=== PATIENT | female | born 1985 | race Caucasian/White ===

== ENCOUNTER 2020-07-12 09:59 | Emergency (ER) | payer MEDICAID ==
[~2020-07-12] VITALS: Ht 154.9 cm; Wt 100.0 kg
[~2020-07-12 09:59] MED LIST: AMOXICILLIN 50500 MG PO; CEPHALEXIN500 M1 PO; NORCO 325 MG-51 TAB PO; ROXICODONE 55 MG/TAB PO; ULTRAM 50MG TAB50 MG PO
[2020-07-12 10:28] VITALS: BP 125/87; TEMP 97.7
[2020-07-12 11:57] VITALS: PULSE 87
== END 2020-07-12 11:57 | disposition home or self-care (01) ==
LOC: COL.ER 09:59
DX: J06.9 Acute upper respiratory infection, unspecified (principal); F17.210 Nicotine dependence, cigarettes, uncomplicated; Z20.822 Contact with and (suspected) exposure to COVID-19; Z88.0 Allergy status to penicillin; Z88.2 Allergy status to sulfonamides; Z88.6 Allergy status to analgesic agent; Z88.1 Allergy status to other antibiotic agents

== ENCOUNTER 2020-11-05 12:28 | Emergency (ER) | payer MEDICAID ==
[~2020-11-05] VITALS: Ht 154.9 cm; Wt 109.1 kg
[2020-11-05 13:01] VITALS: TEMP 101.9
[2020-11-05] MEDS ORDERED: ZITHROMAX Z PA250 MG PO (14:39)
[2020-11-05] MEDS ORDERED: PREDNISONE20 MG PO (14:39)
[2020-11-05] MEDS ORDERED: ZOFRAN ODT4 MG PO (14:39)
[2020-11-05 14:55] VITALS: BP 130/61; PULSE 80
== END 2020-11-05 15:01 | disposition home or self-care (01) ==
LOC: COL.ER 12:28
DX: U07.1 COVID-19 (principal); F17.200 Nicotine dependence, unspecified, uncomplicated

== ENCOUNTER 2020-12-10 17:31 | Emergency (ER) | payer MEDICAID ==
[~2020-12-10] VITALS: Ht 154.9 cm; Wt 113.6 kg
[~2020-12-10 17:31] MED LIST changes: +PREDNISONE20 MG PO; +ZITHROMAX Z PA250 MG PO; +ZOFRAN ODT4 MG PO
[2020-12-10 17:36] VITALS: TEMP 98.5
[2020-12-10 18:29] LABS: COLLECTION METHOD CLEAN CATCH
[2020-12-10 18:31] LABS: BASO % 0.3 % (0.0-2.0); EOS # 0.2 (0.0-0.7); EOS % 2.5 % (0-4.0); GRAN # 4.7 (1.4-6.5); GRAN % 72.7 % (42.2-75.2); HEMATOCRIT 40.8 % (37.0-47.0); HEMOGLOBIN 13.3 g/dl (12.5-16.0); LYMPH # 1.2 (1.2-3.4); LYMPH % 18.2 % (20.0-51.0); MEAN CELL VOLUME 90 fl (80.0-100.0); MEAN CORPUSCULAR HEMOGLOBIN 29 pg (27.0-31.0); MEAN CORPUSCULAR HGB CONC 33 g/dl (33.0-37.0); MEAN PLATELET VOLUME 10.7 fl (7.4-10.4); MONO # 0.4 (0.1-0.6); MONO % 5.8 % (1.7-9.3); PLATELET COUNT 249 K/mm3 (130-400); RED BLOOD COUNT 4.56 M/mm3 (4.10-5.30); REDCELL DISTRIBUTION WIDTH-CV 14.7 % (11.5-14.5)
[2020-12-10 18:46] LABS: ALANINE AMINOTRANSFERASE 17 U/L (0-55); ALBUMIN 4.2 gm/dL (3.5-5.0); ALKALINE PHOSPHATASE 68 U/L (0-750); ANION GAP 12 mmol/L (7-16); AST,SGOT 23 U/L (5-34); BILIRUBIN,TOTAL 0.3 mg/dL (0.2-1.2); BLOOD UREA NITROGEN 8 mg/dL (7-19); CALCIUM 8.5 mg/dL (8.4-10.2); CHLORIDE 112 mmol/L (98-107); CREATININE, serum 1.09 mg/dL (0.57-1.11); GLUCOSE 118 mg/dL (70-99); POTASSIUM 4.2 mmol/L (3.5-4.5); SODIUM 138 mmol/L (136-145); TOTAL PROTEIN 7.4 gm/dL (6.2-8.1)
[2020-12-10 18:48] LABS: ACETAMINOPHEN < 1.0 ug/mL (10-30); ALCOHOL(ethanol),MEDICAL < 10 mg/dL (0-10); SALICYLATE < 5.0 mg/dL (15.0-30.0)
[2020-12-10 18:48] LABS: MUCOUS Present /lpf; PH 5 (5-8); URINE APPEARANCE Turbid; URINE BACTERIA None Seen /hpf; URINE BILIRUBIN Positive (NEGATIVE); URINE BLOOD Negative (NEGATIVE); URINE COLOR Yellow; URINE GLUCOSE Negative (NEGATIVE); URINE KETONE Negative (NEGATIVE); URINE LEUKOCYTE ESTERASE Negative (NEGATIVE); URINE NITRATE Negative (NEGATIVE); URINE PROTEIN(semi-quant) 1+ (NEGATIVE); URINE RBC 0-2 /hpf; URINE UROBILINOGEN Negative (NEGATIVE)
[2020-12-10 18:49] LABS: CARBON DIOXIDE 14 mmol/L (22-29)
[2020-12-10 18:49] LABS: TRICYCLIC ANTIDEPRESS URINE POSITIVE
[2020-12-10 22:01] VITALS: BP 129/96; PULSE 85
== END 2020-12-10 22:01 | disposition home or self-care (01) ==
LOC: COL.ER 17:31
PROVIDERS: Nurse Practitioner
DX: T48.3X2A Poisoning by antitussives, intentional self-harm, initial encounter (principal); F17.210 Nicotine dependence, cigarettes, uncomplicated
CPT/HCPCS: J7030